=== PATIENT | female | born 1950 | race Caucasian/White ===

== ENCOUNTER → 2020-02-29 | Outpatient (CLI) | payer BC ==
--- NOTE | 2020-03-05 12:40 | SLEEPHOME ---
DATE OF PROCEDURE: 02/29/2020 ORDERED BY: Mikhail Garcia MD Diagnostic home sleep testing was performed due to concern for the obstructive sleep apnea syndrome. For testing a nocturnal T3 respiratory monitoring device was used. Continuous record was made of pulse, oxygen saturation, airflow, chest and abdominal strain, and body position. 9 hours and 59 minutes of data were reviewed. There were 6 hours and 40 minutes marked as time in bed. During the interval marked time in bed, there were 41 respiratory events identified of 10 seconds in duration or greater for a respiratory event index of 6.1. The events were primarily obstructive. Baseline pulse rate 61. Pulse rate ranged 54-79. Baseline saturation was just 89%. Saturations fell to 80% surrounding respiratory events and the testing was performed in both the supine and nonsupine positions. IMPRESSION: Abnormal home sleep testing with repetitive respiratory events and oxygen desaturations to 80% with a respiratory event index of 6.1 is consistent with the obstructive sleep apnea syndrome. RECOMMENDATIONS: The patient should be encouraged to undergo formal sleep evaluation.
== END ==
LOC: M SLEEP HO 10:17
PROVIDERS: ATTEND Internal Medicine Cardiovascular Disease
DX: R06.83 Snoring (principal)